=== PATIENT | male | born 1985 | race Caucasian/White ===

== ENCOUNTER 2017-01-28 06:42 | Emergency (ER) | payer MEDICAID, OTHER ==
[~2017-01-28] VITALS: Ht 170.2 cm; Wt 75.5 kg
[2017-01-28 06:51] VITALS: Ht 170.2 cm; Wt 75.5 kg
--- NOTE | 2017-01-28 07:35 | ERD ---
ER Documentation Chief Complaint Date/Time DATE: 01/28/17 TIME: 07:30 Chief Complaint N/V/D STARTING ON SUNDAY HPI 31-year-old male complaining of diarrhea 2 days. He reports subjective fever at onset, but did not check his temperature. He had diarrhea "all night" last night. Last episode was about 1 hour ago. Denies abdominal pain or vomiting. Denies cough or runny nose. His son also had similar symptoms. ROS All systems reviewed and are negative except as per history of present illness. PMhx/Soc Medical and Surgical Hx: pt denies Medical Hx, pt denies Surgical Hx Hx Alcohol Use: No Hx Substance Use: No Hx Tobacco Use: No Smoking Status: Never smoker Physical Exam Vitals Vital Signs Date Time Temp Pulse Resp B/P Pulse Ox O2 Delivery O2 Flow Rate FiO2 01/28/17 06:51 98.9 89 16 136/80 98 Physical Exam General impression: Well-developed, well-nourished. Alert, oriented, in no acute distress Head: Normocephalic, atraumatic. Eyes: PERRL, EOM normal. Sclerae are normal. Conjunctiva not injected. ENT: Nasal mucosa, oral mucosa and oropharynx are normal. Neck: Supple, nontender. No lymphadenopathy. No nuchal rigidity. Respiration: Normal respiratory effort. Lungs clear to auscultate bilaterally. No wheezes, rales or rhonchi. Cardiovascular: Regular rate and rhythm. No murmurs or extra heart sounds. Abdomen: Abdomen normal to inspection. Nontender. No masses or organomegaly. Bowel sounds normal. Neuro: Mental status normal, speech normal. RIGHT OF WAY BUYER grossly intact. Skin: Normal turgor. No rash or lesions. Psych: Normal mood and affect. Procedures/MDM Patient is afebrile, does not have any abdominal tenderness on palpation. I doubt acute appendicitis, cholecystitis or other acute abdomen. Patient's symptoms is consistent with viral illness. Patient does not have any active vomiting, is able to maintain by mouth fluid intake. Patient appears well, stable for discharge and outpatient management. Medical decision making shared with patient and family. Education provided to patient and family. Patient and family expressed understanding of the plan. Medications on discharge: None. Follow-up: Primary care provider in 2-3 days or return to ED if worse. Departure Diagnosis: Primary Impression: Diarrhea Diarrhea type: presumed infectious Qualified Code: A09 - Diarrhea of presumed infectious origin Condition: Good Patient Instructions: Treating Diarrhea [facility] Usted se lowe hecho un examen mdico de control que le indica que no est en segun condicin que requiera tratamiento urgente en el Departamento de Emergencia. Un estudio ms profundo y el tratamiento de arshad condicin pueden esperar sin ningn riesgo hasta que usted sea atendida/o en el consultorio de arshad mdico o segun cl javon. Es responsabilidad suya arreglar segun eric para el seguimiento del dev. MANEJO DE CONDICIONES NO URGENTES EN EL FUTURO 1) Si usted tiene un mdico de atencin primaria: Usted debera llamar a arshad mdico de atencin primaria antes de venir al departamento de emergencia. Despus de las horas de consultorio, arshad doctor o arshad asociado/a est disponible por telfono. El mdico o enfermero de yusef en el servicio telefnico puede asesorarle por sylvia medio para atender el problema, o dev contrario se puede programar segun eric. 2) Si usted no tiene un mdico de atencin primaria: Llame al mdico o clnica de referencia que aparece abajo josep las horas de consultorio para hacer segun eric para que le vean. CLINICAS: [facility] [phone] [facility] [phone] [facility]. [facility] [phone] [facility]. [facility] [phone] [facility]. [place] [id number] [phone] [facility]. [phone] [address] Additional Instructions: Llame al doctor MAANA y staci segun ERIC PARA DENTRO DE 2-3 JHAVERI.Dgale a la secretaria que nosotros le instruimos hacer esta eric.Avise o llame si arshad condicin se empeora antes de la eric. Regresa aqui si peor o no mejor. BRANDEN HARRIS. ANGELA Jan 28, 2017 07:34
== END 2017-01-28 08:09 | disposition home or self-care (01) ==
LOC: FTE 06:42
DX: R19.7 Diarrhea, unspecified (principal)
CPT/HCPCS: 99282